=== PATIENT | male | born 1955 | race Caucasian/White ===

== ENCOUNTER 2021-02-14 14:32 | Emergency (ER) | payer MEDICARE, OTHER ==
[~2021-02-14] VITALS: Ht 188 cm; Wt 102.1 kg
[2021-02-14 14:35] VITALS: BP 150/82
--- NOTE | 2021-02-14 19:00 | NUR ---
PT WAITING OUTSIDE, PT DOES NOT WANT TO COME IN ER WHEN CALLED IN TO CHAIR A. VALE NOTIFIED AND VALE WENT OUT SIDE TO TALK WITH PT.
--- NOTE | 2021-02-14 23:08 | NUR ---
pt unable to be found when called x 3.
== END 2021-02-14 23:08 | disposition home or self-care (01) ==
LOC: MED 14:32
DX: R53.1 Weakness (principal); R07.9 Chest pain, unspecified; E03.9 Hypothyroidism, unspecified; Z90.49 Acquired absence of other specified parts of digestive tract
CPT/HCPCS: 99283